=== PATIENT | male | born 1975 | race African-American/Black ===

== ENCOUNTER 2016-09-15 17:53 | Emergency (ER) | payer OTHER ==
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
[2016-09-15 18:14] VITALS: BP 156/96; PULSE 83; TEMP 98.7; BMI 23.1
== END 2016-09-15 18:30 | disposition home or self-care (01) ==
LOC: FER 17:53
DX: D17.79 Benign lipomatous neoplasm of other sites (principal); R20.9 Unspecified disturbances of skin sensation
CPT/HCPCS: 99282-25